=== PATIENT | male | born 1975 | race Two or more races ===

== ENCOUNTER 2019-10-04 05:20 | Day surgery (SDC) | payer OTHER ==
[~2019-10-04 05:20] MED LIST: ZESTRIL40 M1 PO
== END 2019-10-04 15:45 | disposition home or self-care (01) ==
LOC: CIR.AMB 05:20
PROVIDERS: ATTEND Colon & Rectal Surgery
DX: K64.8 Other hemorrhoids (principal); K64.4 Residual hemorrhoidal skin tags; Z20.828 Contact with and (suspected) exposure to other viral communicable diseases